=== PATIENT | female | born 1975 | race Caucasian/White ===

== ENCOUNTER 2021-10-23 17:23 | Outpatient (CLI) | payer SELFPAY ==
[2021-10-23 20:29] LABS: Color,Urine Colorless (Yellow)
[2021-10-23 20:30] LABS: Bilirubin,Urine Negative (Negative); Blood,Urine Trace (Negative); Urobilinogen,Urine 0.2 mg/dL (<2.0)
[2021-10-23 20:32] LABS: Bacteria,Urine 1+ /HPF (Negative); Mucus,Urine FEW /HPF
--- NOTE | 2021-10-23 21:08 | Ultrasound Report ---
ULTRASOUND OBSTETRIC Indication: GESTATIONAL AGE Findings: Gestational sac is present with yolk sac and pole. [place]-rump length = 0.49 cm = 6 weeks, 2 day (s). No embryonic cardiac activity was detected. There is a 3.6 cm right ovarian cyst. Left ovary is not visualized. No free fluid is seen. Impression: Intrauterine gestational sac with yolk sac and pole. [place]-rump length is 6 weeks, 2 days. No e mbryonic cardiac activity was detected. Signer Name: Bentley Cancino MD Signed: 10/23/2021 9:03 PM Workstation Name: [id number]
== END 2021-10-23 21:13 | disposition home or self-care (01) ==
LOC: TRG 17:23 → APU 17:30 → TRG 21:13
PROVIDERS: ATTEND Obstetrics & Gynecology
DX: O34.81 Maternal care for other abnormalities of pelvic organs, first trimester (principal); Z3A.08 8 weeks gestation of pregnancy
CPT/HCPCS: 76801; 81001; 87086